=== PATIENT | female | born 1995 | race African-American/Black ===

== ENCOUNTER 2018-06-08 12:39 | Emergency (ER) | payer OTHER, BC ==
[2018-06-08 12:45] VITALS: BP 134/73
[2018-06-08] MEDS ORDERED: SILVER SULFADIAZINE 1% CREAM 25 GM TP ONE (12:56)
--- NOTE | 2018-06-08 12:56 | ER Document Report ---
HPI - HPI Patient complains to provider of: burn Onset: Just prior to arrival Onset/Duration: Sudden Quality of pain: Burning Severity: Moderate Pain Level: 3 Context: She presents to the emergency department with a splash burn from Mil cheddar cheese soup to her left side of her neck and her chest area. Patient reports she works at [employer]. She was putting with broccoli cheddar cheese soup and it splashed up on her. Patient is tearful. 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 She did wash the area off and went home and changed. No blisters noted, patient is not sure when her last tetanus was. Associated Symptoms: None Exacerbated by: Denies Relieved by: Denies Similar symptoms previously: No Recently seen / treated by doctor: No Past Medical History - General Information source: Patient Last Menstrual Period: current - Social History Smoking Status: Unknown if Ever Smoked Cigarette use (# per day): No Frequency of alcohol use: None Drug Abuse: None Occupation: [employer] Family History: None Patient has suicidal ideation: No Patient has homicidal ideation: No - Medical History Medical History: Negative Surgical Hx: Negative Vertical Provider Document - CONSTITUTIONAL Agree With Documented VS: Yes Exam Limitations: No Limitations General Appearance: WD/WN, No Apparent Distress - tearful, emotional - INFECTION CONTROL TRAVEL OUTSIDE OF THE [place] IN LAST 30 DAYS: No - HEENT HEENT: Atraumatic. negative: Conjuctival Injection - NECK Neck: Normal Inspection, Supple - RESPIRATORY Respiratory: No Respiratory Distress - CARDIOVASCULAR Cardiovascular: Regular Rate - MUSCULOSKELETAL/EXTREMETIES Musculoskeletal/Extremeties: MAEW, FROM - NEURO Level of Consciousness: Awake, Alert, Appropriate Motor/Sensory: No Motor Deficit - DERM Integumentary: Warm, Dry Adult Front & Back Diagram: 1 - small circular area redness ~ 1cm around 2 - small erythema, no blisters Course - Re-evaluation Re-evalutation: 06/08/18 13:08 Patient instructed on Silvadene. Patient instructed on signs and symptoms of infection. Declined pain medication. Cold washcloth applied - Vital Signs Vital signs: Temp Pulse Resp BP Pulse Ox 99.4 F 84 18 134/73 H 98 06/08/18 12:44 06/08/18 12:44 06/08/18 12:44 06/08/18 12:44 06/08/18 12:44 Discharge - Discharge Clinical Impression: Burn Condition: Stable Disposition: HOME, SELF-CARE Instructions: Sy ([facility]), Silvadene Cream ([facility]), Soap Cleansing ([facility]), Tetanus Immunization Given ([facility]) Additional Instructions: *You have been treated for a burn *The Silvadene in the refrigerator apply twice a day *Take tylenol or motrin as indicated for pain *Monitor the site for signs of infection such as increasing pain, redness, swelling, warmth *Keep the area clean *Follow up with a primary care provider within one week for recheck *Return to ED for signs of infection, worsening condition, changes, needs Monitor your blood pressure. Your blood pressure was elevated today. This may be because you were anxious, in pain or because you need medication. It is important to follow up with your primary care provider for full evaluation. Forms: Elevated Blood Pressure
[2018-06-08] MEDS ORDERED: DIPH/PERTUSS(ACELL)/TETANUS VAC/PF 0.5 ML SYR (>=10YO) IM ONE (12:57)
== END 2018-06-08 13:19 | disposition home or self-care (01) ==
LOC: ER 12:39
DX: T20.17XA Burn of first degree of neck, initial encounter (principal); T21.11XA Burn of first degree of chest wall, initial encounter; X10.1XXA Contact with hot food, initial encounter; Y93.G3 Activity, cooking and baking; Y92.511 Restaurant or cafe as the place of occurrence of the external cause; Y99.0 Civilian activity done for income or pay; Z23 Encounter for immunization
CPT/HCPCS: 90715; 99283